=== PATIENT | female | born 1930 | race Caucasian/White ===

== ENCOUNTER → 2016-08-16 | Outpatient (REF) | payer BC ==
[2016-08-16 12:33] LABS: ALBUMIN 3.6 GM/DL (3.2-5.2); ALBUMIN/GLOBULIN RATIO 1.16 (1.00-1.93); BILIRUBIN,TOTAL 0.3 MG/DL (0.2-1.0); CALCIUM LEVEL 8.5 MG/DL (8.8-10.2); CREATININE FOR GFR 0.98 MG/DL (0.55-1.02); GLOMERULAR FILTRATION RATE 57.3 (>32); POTASSIUM SERUM 4.3 MEQ/L (3.5-5.1); TOTAL PROTEIN 6.7 GM/DL (6.4-8.2)
== END ==
LOC: M SFHCPLAZ 08:01
PROVIDERS: ATTEND Internal Medicine
DX: R73.01 Impaired fasting glucose (principal)

== ENCOUNTER → 2017-02-12 | Outpatient (REF) | payer BC ==
[2017-02-12 10:43] LABS: MEAN CORPUSCULAR HEMOGLOBIN 31.7 pg (27.0-33.0); MEAN CORPUSCULAR HGB CONC 32.5 g/dl (32.0-36.5); MEAN CORPUSCULAR VOLUME 97.5 fl (80.0-96.0); RED CELL DISTRIBUTION WIDTH 14.1 % (11.5-14.5); WHITE BLOOD COUNT 4.9 10^3/uL (4.0-10.0)
[2017-02-12 11:16] LABS: ALBUMIN 3.5 GM/DL (3.2-5.2); ALBUMIN/GLOBULIN RATIO 1.06 (1.00-1.93); BILIRUBIN,TOTAL 0.3 MG/DL (0.2-1.0); CALCIUM LEVEL 8.7 MG/DL (8.8-10.2); CREATININE FOR GFR 1.05 MG/DL (0.55-1.02); GLOMERULAR FILTRATION RATE 52.9 (>32); POTASSIUM SERUM 4.4 MEQ/L (3.5-5.1); TOTAL PROTEIN 6.8 GM/DL (6.4-8.2)
== END ==
LOC: M SFHCPLAZ 08:11
PROVIDERS: ATTEND Internal Medicine
DX: F03.90 Unspecified dementia, unspecified severity, without behavioral disturbance, psychotic disturbance, mood disturbance, and anxiety (principal); R73.01 Impaired fasting glucose; E78.00 Pure hypercholesterolemia, unspecified

== ENCOUNTER → 2017-08-27 | Outpatient (REF) | payer BC ==
[2017-08-27 12:04] LABS: ALBUMIN 3.6 GM/DL (3.2-5.2); ALBUMIN/GLOBULIN RATIO 1.03 (1.00-1.93); ALKALINE PHOSPHATASE 151 U/L (45-117); ALT/SGPT 32 U/L (12-78); ANION GAP 4 MEQ/L (8-16); AST/SGOT 18 U/L (7-37); BILIRUBIN,TOTAL 0.3 MG/DL (0.2-1.0); BLOOD UREA NITROGEN 24 MG/DL (7-18); CALCIUM LEVEL 8.7 MG/DL (8.8-10.2); CARBON DIOXIDE LEVEL 28 MEQ/L (21-32); CHLORIDE LEVEL 112 MEQ/L (98-107); GLUCOSE, FASTING 77 MG/DL (70-100); MAGNESIUM LEVEL 2.5 MG/DL (1.8-2.4); POTASSIUM SERUM 4.5 MEQ/L (3.5-5.1); SODIUM LEVEL 144 MEQ/L (136-145); TOTAL PROTEIN 7.1 GM/DL (6.4-8.2)
== END ==
LOC: M SFHCPLAZ 09:14
DX: G25.81 Restless legs syndrome (principal); R73.01 Impaired fasting glucose
CPT/HCPCS: 83735

== ENCOUNTER → 2018-03-06 | Outpatient (REF) | payer BC ==
[2018-03-06 12:14] LABS: HEMOGLOBIN 14.3 g/dl (12.0-15.5); MEAN CORPUSCULAR HGB CONC 31.8 g/dl (32.0-36.5); MEAN CORPUSCULAR VOLUME 97.4 fl (80.0-96.0); PLATELET COUNT, AUTOMATED 195 10^3/uL (150-450); RED BLOOD COUNT 4.62 10^6/uL (4.00-5.40); RED CELL DISTRIBUTION WIDTH 14.2 % (11.5-14.5); WHITE BLOOD COUNT 7.3 10^3/uL (4.0-10.0)
[2018-03-06 13:34] LABS: ESTIMATED AVERAGE GLUCOSE 126 MG/DL (60-110)
[2018-03-06 16:04] LABS: ALBUMIN 3.5 GM/DL (3.2-5.2); ALBUMIN/GLOBULIN RATIO 0.97 (1.00-1.93); ALKALINE PHOSPHATASE 152 U/L (45-117); ALT/SGPT 25 U/L (12-78); ANION GAP 7 MEQ/L (8-16); AST/SGOT 18 U/L (7-37); BILIRUBIN,TOTAL 0.4 MG/DL (0.2-1.0); BLOOD UREA NITROGEN 24 MG/DL (7-18); CALCIUM LEVEL 8.8 MG/DL (8.8-10.2); CARBON DIOXIDE LEVEL 28 MEQ/L (21-32); CHLORIDE LEVEL 107 MEQ/L (98-107); CHOLESTEROL LEVEL 176 MG/DL (<200); CHOLESTEROL RISK RATIO 2.514 (<5); CREATININE FOR GFR 0.97 MG/DL (0.55-1.30); GLOMERULAR FILTRATION RATE 57.8 (>32); GLUCOSE, FASTING 80 MG/DL (70-100); HDL CHOLESTEROL 70 MG/DL (>40); LDL CHOLESTEROL 83 MG/DL (<100); NON-HDL-C 106 MG/DL; POTASSIUM SERUM 4.8 MEQ/L (3.5-5.1); SODIUM LEVEL 142 MEQ/L (136-145); TOTAL PROTEIN 7.1 GM/DL (6.4-8.2); TRIGLYCERIDES LEVEL 116 MG/DL (<150)
== END ==
LOC: M SFHCPLAZ 09:53
DX: F03.90 Unspecified dementia, unspecified severity, without behavioral disturbance, psychotic disturbance, mood disturbance, and anxiety (principal); G25.81 Restless legs syndrome; R73.01 Impaired fasting glucose; E78.00 Pure hypercholesterolemia, unspecified

== ENCOUNTER → 2018-09-14 | Outpatient (REF) | payer BC ==
[2018-09-14 13:01] LABS: ALBUMIN 3.5 GM/DL (3.2-5.2); ALT/SGPT 27 U/L (12-78); BILIRUBIN,TOTAL 0.3 MG/DL (0.2-1.0); BLOOD UREA NITROGEN 23 MG/DL (7-18); CALCIUM LEVEL 8.7 MG/DL (8.8-10.2); CARBON DIOXIDE LEVEL 29 MEQ/L (21-32); CHLORIDE LEVEL 111 MEQ/L (98-107); CREATININE FOR GFR 0.93 MG/DL (0.55-1.30); GLOMERULAR FILTRATION RATE > 60.0 (>32); GLUCOSE, FASTING 73 MG/DL (70-100); POTASSIUM SERUM 4.6 MEQ/L (3.5-5.1); SODIUM LEVEL 143 MEQ/L (136-145); TOTAL PROTEIN 6.7 GM/DL (6.4-8.2); VITAMIN B12 LEVEL 680 PG/ML
[2018-09-14 13:02] LABS: FOLATE 21.6 NG/ML
[2018-09-14 13:23] LABS: HEMOGLOBIN A1c 6.3 %
== END ==
LOC: M SFHCPLAZ 10:12
PROVIDERS: ATTEND Internal Medicine
DX: F03.90 Unspecified dementia, unspecified severity, without behavioral disturbance, psychotic disturbance, mood disturbance, and anxiety (principal); R73.01 Impaired fasting glucose

== ENCOUNTER → 2019-03-19 | Outpatient (REF) | payer BC ==
[2019-03-19 12:44] LABS: HEMATOCRIT 46.8 % (36.0-47.0); HEMOGLOBIN 14.5 g/dl (12.0-15.5); MEAN CORPUSCULAR HEMOGLOBIN 30.7 pg (27.0-33.0); MEAN CORPUSCULAR VOLUME 98.9 fl (80.0-96.0); PLATELET COUNT, AUTOMATED 175 10^3/uL (150-450); RED BLOOD COUNT 4.73 10^6/uL (4.00-5.40); WHITE BLOOD COUNT 7.2 10^3/uL (4.0-10.0)
[2019-03-19 13:23] LABS: CALCIUM LEVEL 8.6 MG/DL (8.8-10.2); CREATININE FOR GFR 1.32 MG/DL (0.55-1.30); GLOMERULAR FILTRATION RATE 40.4 (>32); POTASSIUM SERUM 4.3 MEQ/L (3.5-5.1)
[2019-03-19 13:24] LABS: ALBUMIN 3.8 GM/DL (3.2-5.2); BILIRUBIN,TOTAL 0.5 MG/DL (0.2-1.0); TOTAL 25(OH) VITAMIN D 34.8 NG/ML (30.0-100.0); TOTAL PROTEIN 7.3 GM/DL (6.4-8.2)
[2019-03-19 23:48] LABS: HEMOGLOBIN A1c 6.3 %
== END ==
LOC: M SFHCPLAZ 10:02
PROVIDERS: ATTEND Internal Medicine
DX: G25.81 Restless legs syndrome (principal); E78.00 Pure hypercholesterolemia, unspecified; R73.01 Impaired fasting glucose; M85.9 Disorder of bone density and structure, unspecified

== ENCOUNTER 2019-07-15 13:45 | Day surgery (SDC) | payer BC ==
[~2019-07-15] VITALS: Ht 152.4 cm; Wt 60.3 kg
[~2019-07-15 13:45] MED LIST: ATOR1TAB19 PO; BUSP10TA PO; CARB10TA6 PO; LR 1,000 ML IV ONE; MEMA10TA19 PO; MIRT1TAB17 PO; MULTCAP PO; XALA0.007 OU
[2019-07-15] MEDS ORDERED: ALLE180T33 PO (14:59)
[2019-07-15] MEDS ORDERED: BENZ-18 PO (14:59)
[2019-07-15] MEDS ORDERED: propofoL 200 MG/20 ML VIAL As Ordered ONE (15:04)
[2019-07-15] MEDS ORDERED: fentaNYL 100 MCG/2 ML INJECTION (J3010) As Ordered ONE (15:05)
[2019-07-15] MEDS ORDERED: LIDOCAINE 2% INJ 100 MG/5 ML SDV (FOR ANES.) As Ordered ONE (15:05)
[2019-07-15] MEDS ORDERED: BUPIVACAINE/EPIN 0.25% 30 ML VIAL As Ordered ONE (17:07)
[2019-07-15] MEDS ORDERED: GLYCOPYRROLATE INJ 0.2 MG/ML 2 ML VIAL As Ordered ONE (17:43)
[2019-07-15 18:35] VITALS: BP 157/73
--- NOTE | 2019-07-20 16:46 | RO ---
DATE OF PROCEDURE: 07/15/2019 PREOPERATIVE DIAGNOSIS: Foreign body right ring finger. POSTOPERATIVE DIAGNOSIS: Foreign body right ring finger. PROCEDURE PERFORMED: Exploration of right ring finger and removal of foreign body. SURGEON: Rogers Rowe MD [employer] REPRESENTATIVE: ANESTHESIA: Local monitored anesthesia care (MAC). ESTIMATED BLOOD LOSS: Less than 2 mL, replaced with crystalloid. No complications. INDICATIONS: This is an 89-year-old female who got exposed to a small shard of glass when a wine glass broke; it became embedded in the ring finger. They were not happy with nonoperative management and observation and have elected for operative intervention. Consent reviewed in detail including a jb discussion of the pathology involved, the possibility of failure to find the shard of glass, and risks, including but not limited to pain, failure, infection, need for more surgery, other issues, stiffness. DESCRIPTION OF PROCEDURE: Identified in holding area, brought to the operating room once she was sedated. I anesthetized the finger using 1 mL 0.25% Marcaine with epinephrine. Next, loupe magnification was utilized. I utilize a 15 blade knife to open the area over the fullness, which was just proximal to the distal interphalangeal joint crease on the volar aspect of the ring finger. Once I made the incision, just volar to the flexor tendon sheath, we appreciated and 1 x 3 mm shard of glass and a second small fragment. These were able to be removed. No purulence was appreciated. Irrigation was accomplished. I explored for any additional fragments, none were found. The wound was closed with interrupted nylon stitch. Dressing was applied. The patient was able to be moved to recovery in good condition.
== END 2019-07-15 18:40 | disposition home or self-care (01) ==
LOC: M SDC 13:45
PROVIDERS: ATTEND Orthopaedic Surgery
DX: S60.454A Superficial foreign body of right ring finger, initial encounter (principal); X58.XXXA Exposure to other specified factors, initial encounter; Y92.89 Other specified places as the place of occurrence of the external cause; Y99.9 Unspecified external cause status; Y93.9 Activity, unspecified; I10 Essential (primary) hypertension; G25.81 Restless legs syndrome; F03.90 Unspecified dementia, unspecified severity, without behavioral disturbance, psychotic disturbance, mood disturbance, and anxiety
CPT/HCPCS: 10120; J3010

== ENCOUNTER → 2020-02-24 | Outpatient (REF) | payer BC ==
[~2020-02-24] MED LIST changes: +ALLE180T33 PO; +BENZ-18 PO; -LR 1,000 ML IV ONE
[2020-02-24 10:40] LABS: HEMATOCRIT 45.4 % (36.0-47.0); HEMOGLOBIN 14.4 g/dl (12.0-15.5); MEAN CORPUSCULAR HEMOGLOBIN 30.8 pg (27.0-33.0); MEAN CORPUSCULAR HGB CONC 31.7 g/dl (32.0-36.5); MEAN CORPUSCULAR VOLUME 97.2 fl (80.0-96.0); PLATELET COUNT, AUTOMATED 190 10^3/uL (150-450); RED BLOOD COUNT 4.67 10^6/uL (4.00-5.40); WHITE BLOOD COUNT 6.6 10^3/uL (4.0-10.0)
[2020-02-24 17:17] LABS: ALBUMIN 3.5 GM/DL (3.2-5.2); BILIRUBIN,TOTAL 0.5 MG/DL (0.2-1.0); CREATININE FOR GFR 1.1 MG/DL (0.55-1.30); FOLATE 10.2 NG/ML; GLOMERULAR FILTRATION RATE 49.8 (>32); POTASSIUM SERUM 4.5 MEQ/L (3.5-5.1); PTH INTACT 50.7 PG/ML (18.5-88.0); THYROID STIMULATING HORMONE 2.74 uIU/ML (0.358-3.740); TOTAL PROTEIN 6.8 GM/DL (6.4-8.2)
== END ==
LOC: M SFHCPLAZ 08:02
PROVIDERS: ATTEND Internal Medicine
DX: R73.01 Impaired fasting glucose (principal); N18.30 Chronic kidney disease, stage 3 unspecified; F03.90 Unspecified dementia, unspecified severity, without behavioral disturbance, psychotic disturbance, mood disturbance, and anxiety; G25.81 Restless legs syndrome